=== PATIENT | male | born 1995 ===

== ENCOUNTER 2022-10-29 19:58 | Emergency (ER) | payer OTHER, SELFPAY ==
[2022-10-29 20:00] VITALS: BP 154/97; PULSE 99; RESP 16; TEMP 36.6; O2SAT 99; BMI 30.4
--- NOTE | 2022-10-30 00:11 | PC.NURSE ---
[employer]: Attempted to find patient in waiting room. Called patient on his phone. Sounded like he was driving, said we were looking for him. I dipped. Asked for explanation...Patient said he left.
== END 2022-10-29 23:45 | disposition left against medical advice (07) ==
PROVIDERS: Emergency Provider Emergency Medicine
DX: R10.13 Epigastric pain (principal)
CPT/HCPCS: 81003; 99281